=== PATIENT | female | born 1965 | race Caucasian/White ===

== ENCOUNTER 2017-09-26 05:36 | Day surgery (SDC) | payer BC ==
[2017-09-23 16:08] LABS: CLARITY,URINE SLIGHTLY CLOUDY (Clear); COLOR,URINE STRAW (Yellow); GLUCOSE, URINE NEGATIVE (Neg); KETONES,URINE NEGATIVE (Neg); LEUKOCYTE ESTERASE ,URINE NEGATIVE (Neg); NITRITES, URINE NEGATIVE (Neg); OCCULT BLOOD,URINE NEGATIVE (Neg); PROTEIN,URINE NEGATIVE (Neg); UROBILINOGEN,URINE 0.2 E.U/dL (0.2-1.0)
[2017-09-23 16:11] LABS: UA COLLECTION TYPE CLN CATCH MIDSTREAM
[2017-09-23 16:44] LABS: BASOPHILS # (AUTO) 0.1 X10'3 (0-0.2); BASOPHILS % (AUTO) 0.8 % (0-1); EOSINOPHILS # (AUTO) 0.1 X10'3 (0-0.9); EOSINOPHILS % (AUTO) 1.3 % (0-6); LYMPHOCYTES # (AUTO) 2.8 X10'3 (1.1-4.8); LYMPHOCYTES % (AUTO) 39.8 % (21-51); MEAN CORPUSCULAR HEMOGLOBIN 31.6 PG (27.0-31.0); MEAN CORPUSCULAR HGB CONC 34.9 % (33.0-36.5); MEAN CORPUSCULAR VOLUME 90.4 FL (78-98); MEAN PLATELET VOLUME 8.6 FL (7.4-10.4); MONOCYTES # (AUTO) 0.4 X10'3 (0-0.9); MONOCYTES % (AUTO) 5.6 % (2-12); NEUTROPHILS # (AUTO) 3.6 X10'3 (1.8-7.7); NEUTROPHILS % (AUTO) 52.5 % (42-75); PRE OP HEMATOCRIT 42.5 % (35.0-45.0); PRE OP HEMOGLOBIN 14.9 g/dL (12.0-16.0); PRE OP PLATELET COUNT 340 X10'3 (140-440); RED CELL DISTRIBUTION WIDTH 13.4 % (11.5-14.5)
[2017-09-23 16:48] LABS: ALBUMIN 3.9 G/DL (3.4-5.0); ALBUMIN/GLOBULIN RATIO 1.1 (1.1-1.5); ALKALINE PHOSPHATASE 139 IU/L (46-116); BLOOD UREA NITROGEN 16 MG/DL (7-18); BUN/CREATININE RATIO 20.3 (6.6-38.0); CALCIUM 8.8 MG/DL (8.5-10.1); CHLORIDE 105 MMOL/L (99-107); CREATININE 0.79 MG/DL (0.40-0.90); PRE OP ALT 41 U/L (30-65); PRE OP ANION GAP 10 (8-16); PRE OP AST 23 U/L (10-37); PRE OP BILIRUB, TOTAL 0.2 MG/DL (0.0-1.0); PRE OP GLUCOSE 95 MG/DL (70-104); PRE OP POTASSIUM 3.9 MMOL/L (3.4-5.1); PRE OP SODIUM 141 MMOL/L (135-145); TOTAL CARBON DIOXIDE 25.6 MMOL/L (24-32); TOTAL PROTEIN 7.3 G/DL (6.4-8.2); eGFR 77 ML/MIN
[2017-09-23 16:50] LABS: HCG SERUM QL NEGATIVE
[2017-09-23 16:59] LABS: MUCUS STRANDS FEW /LPF (Neg); SQUAMOUS EPITHELIAL CELL,UR FEW /LPF (FEW)
[2017-09-23 17:00] LABS: BACTERIA,URINE FEW /HPF (Neg); RBC,URINE NONE SEEN /HPF (0-2); WBC,URINE NONE SEEN /HPF (0-4)
[2017-09-26] VITALS (23 sets, daily range): BP systolic 102–139; BP diastolic 61–89
[~2017-09-26] VITALS: Ht 162.6 cm; Wt 75.0 kg
[~2017-09-26 05:36] MED LIST: ASPI-12 PO; CEFOXITIN 1000 MG in NS IV.SOLN 100 ML IV ONE; FOLATE PO; PLANT ENZYME PO; VITAMIN B 12 PO; famotidine 20mg tablet PO ONE
[2017-09-26] MEDS ORDERED: LIDOcaine 1% (10mg/ml) 2ml vial ONE (05:57)
[2017-09-26] MEDS: ringers solution, lacted 1,000 ML IV SCH ×2 (06:10→21:05)
[2017-09-26] MEDS ORDERED: clindamycin phosphate 40gm vag cream ONE (06:46)
[2017-09-26] MEDS ORDERED: epiNEPHrine 1 mg/ml inj ONE (06:47)
[2017-09-26] MEDS ORDERED: vasoPRESSIN 20 units/ml inj. ONE ×2 (06:47→07:15)
[2017-09-26] MEDS ORDERED: neomy sulf/polymyxin B sulf. GU irrigation 1ml amp IR ONE (06:51)
[2017-09-26] MEDS ORDERED: midazolam 2 mg/2 ml injection ONE (07:34)
[2017-09-26] MEDS ORDERED: fentaNYL/PF 50MCG/1 ML 2ML syringe ONE ×2 (07:35→07:55)
[2017-09-26] MEDS ORDERED: ondansetron/PF 4mg/2ml inj ONE (07:55)
[2017-09-26] MEDS ORDERED: dexamethasone sod phosphate 4mg/ml inj. ONE (07:55)
[2017-09-26] MEDS ORDERED: propofol inj 20 ML IV ONE (07:56)
[2017-09-26] MEDS ORDERED: rocuronium 10mg/ml inj IV ONE (07:56)
[2017-09-26] MEDS ORDERED: LIDOcaine 2% (20mg/ml) 5ml vial ONE (07:56)
[2017-09-26] MEDS ORDERED: ringers solution, lacted 1,000 ML IV ONE (08:16)
[2017-09-26] MEDS ORDERED: ondansetron/PF 4mg/2ml inj IV PRN ×2 (08:20→09:45)
[2017-09-26] MEDS ORDERED: hydrALAZINE 20mg/ml inj. IV PRN (08:20)
[2017-09-26] MEDS ORDERED: meperidine/PF 25mg/ml syringe IV ONE (08:20)
[2017-09-26] MEDS ORDERED: morphine 2 MG/ML inj. syringe IV PRN ×2 (08:20)
[2017-09-26] MEDS ORDERED: meperidine/PF 50mg/ml syringe IV PRN ×2 (08:20)
[2017-09-26] MEDS ORDERED: labetalol 20mg/4ml (5mg/ml) syringe IV PRN (08:20)
[2017-09-26] MEDS: BUPIVAcaine/PF 2.5 mg/ml (0.25%) 30ml vial ONE ×2 (08:36→08:38)
[2017-09-26] MEDS ORDERED: HYDROcodone/acetaminophen 10/325mg tab PO PRN (09:45)
[2017-09-26] MEDS ORDERED: normal saline 500ml IV soln 500 ML IV PRN (09:45)
[2017-09-26] MEDS ORDERED: temazepam 15mg capsule PO PRN (09:45)
[2017-09-26] MEDS ORDERED: magnesium hydroxide 30ml (MOM) UD suspension PO PRN (09:45)
[2017-09-26] MEDS ORDERED: metoclopramide 5 mg/ml inj IV PRN (09:45)
[2017-09-26] MEDS ORDERED: diphenhydrAMINE 50 mg/ml inj IV PRN (09:45)
[2017-09-26] MEDS ORDERED: fluoroscein sod 10% (100mg/ml) 5ml vial ONE (09:51)
[2017-09-26] MEDS: ketorolac tromethamine 15mg/ml inj. IV PRN ×2 (11:11→12:30)
[2017-09-26] MEDS ORDERED: meperidine/PF 50mg/ml syringe ONE (11:33)
[2017-09-26] MEDS: LORazepam 2 mg/ml vial IV PRN ×2 (11:46→16:12)
[2017-09-26] MEDS: HYDROcodone/acetaminophen 10/325mg tab PO PRN ×2 (15:10→19:33)
[2017-09-26] MEDS: simethicone 80mg chew tab PO SCH ×2 (16:22→19:30)
[2017-09-26] MEDS: docusate sod 100mg capsule PO SCH (19:30)
[2017-09-27] VITALS: BP 99/62
[2017-09-27 04:00] VITALS: BP 115/70
[2017-09-27 06:00] LABS: BASOPHILS # (AUTO) 0.1 X10'3 (0-0.2); BASOPHILS % (AUTO) 0.5 % (0-1); EOSINOPHILS # (AUTO) 0.1 X10'3 (0-0.9); EOSINOPHILS % (AUTO) 1.2 % (0-6); HEMATOCRIT 36.5 % (35.0-45.0); HEMOGLOBIN 12.6 g/dl (12.0-16.0); LYMPHOCYTES # (AUTO) 2.1 X10'3 (1.1-4.8); LYMPHOCYTES % (AUTO) 19.3 % (21-51); MEAN CORPUSCULAR HEMOGLOBIN 31.2 PG (27.0-31.0); MEAN CORPUSCULAR HGB CONC 34.7 % (33.0-36.5); MEAN CORPUSCULAR VOLUME 90.1 FL (78-98); MEAN PLATELET VOLUME 8.3 FL (7.4-10.4); MONOCYTES # (AUTO) 0.6 X10'3 (0-0.9); MONOCYTES % (AUTO) 5.7 % (2-12); NEUTROPHILS # (AUTO) 7.9 X10'3 (1.8-7.7); NEUTROPHILS % (AUTO) 73.3 % (42-75); PLATELET COUNT 255 X10'3 (140-440); RED BLOOD COUNT 4.05 X10'6 (4.20-5.60); RED CELL DISTRIBUTION WIDTH 13.4 % (11.5-14.5); WHITE BLOOD COUNT 10.8 X10'3 (4.5-11.0)
[2017-09-27 06:15] LABS: ANION GAP 8 (8-16); BLOOD UREA NITROGEN 11 MG/DL (7-18); BUN/CREATININE RATIO 17.7 (6.6-38.0); CALCIUM 8.5 MG/DL (8.5-10.1); CHLORIDE 107 MMOL/L (99-107); CREATININE 0.62 MG/DL (0.40-0.90); GLUCOSE 110 MG/DL (70-104); POTASSIUM 3.9 MMOL/L (3.5-5.1); SODIUM 142 MMOL/L (135-145); TOTAL CARBON DIOXIDE 26.8 MMOL/L (24-32); eGFR > 90 ML/MIN
[2017-09-27 07:13] VITALS: BP 118/64
[2017-09-27] MEDS ORDERED: enoxaparin 40mg/0.4ml syringe SQ SCH (08:00)
[2017-09-27] MEDS: ketorolac tromethamine 15mg/ml inj. IV PRN (08:46)
[2017-09-27] MEDS: docusate sod 100mg capsule PO SCH (08:46)
[2017-09-27] MEDS: simethicone 80mg chew tab PO SCH ×2 (08:46→13:06)
[2017-09-27 10:59] VITALS: BP 119/70
[2017-09-27] MEDS: HYDROcodone/acetaminophen 10/325mg tab PO PRN (13:46)
== END 2017-09-27 15:15 | disposition home or self-care (01) ==
LOC: PAS 05:36 → MED 3N 09:45 → PAS 09-27 15:15
PROVIDERS: ATTEND Obstetrics & Gynecology Obstetrics
DX: N81.3 Complete uterovaginal prolapse (principal); D25.1 Intramural leiomyoma of uterus; D25.2 Subserosal leiomyoma of uterus; N72 Inflammatory disease of cervix uteri; Z79.82 Long term (current) use of aspirin; Z72.89 Other problems related to lifestyle; Z79.899 Other long term (current) drug therapy
CPT/HCPCS: 36415; 57250; 57425; 58552; 71046; 80048; 80053; 81001; 84703; 85025; 87070; 93005; A4315; J0171; J0694; J1100; J1650; J1885; J2001; J2060; J2175; J2250; J2405; J2704; J3010; J3490; J7030; J7120; A7000